=== PATIENT | female | born 1945 | race Caucasian/White ===

== ENCOUNTER 2017-10-22 09:06 | Emergency (ER) | payer OTHER ==
[2017-10-22 09:16] VITALS: TEMP 97.9; BMI 25.8
[2017-10-22] MEDS ORDERED: ONDANSETRON *ODT* 4 MG TABLET SL ONE (10:34)
[2017-10-22] MEDS ORDERED: ONDANSETRON *ODT* 4 MG TABLET ONE (10:37)
--- NOTE | 2017-10-22 10:55 | PDOC ---
History of Present Illness - General History Source: Patient Exam Limitations: No Limitations - History of Present Illness Initial Comments: 10/22/17 11:12 The patient is a 72 year old female, , all vaginal deliveries with a significant PMH of left breast cancer (s/p mastectomy) and HLD who presents to the emergency department with two episodes of vaginal bleeding, nausea, and suprapubic pain since this morning. The patient describes the suprapubic pain as a 1/10, waxing and waning, and dull pressure. The patient states she first noticed the bright red blood on the toilet paper after wiping this morning. The patient then had another episode of vaginal bleeding after a bowel movement this morning which she describes as a long, thin blood clot not on the stool. The patient denies pain with bowel movements or any abdominal surgeries in the past. The patient reports she was told she had a fibroid 4 years ago but had a normal biopsy and told to visit an ER if she started experiencing vaginal bleeding. The patient reports she came from [place] in May. The patient denies use of blood thinners. The patient can walk at baseline. The patient denies chest pain, shortness of breath, headache and dizziness. Denies fever, chills, vomit, diarrhea and constipation. Denies dysuria, frequency, urgency and hematuria. Allergies: NKA Past surgical history: Tubal ligation Social history: No reported alcohol, drug, or cigarette use. PCP: Dr. Ayala <Kamala Lujan - Last Filed: 10/22/17 11:23> <Nadia Sr - Last Filed: 10/22/17 12:24> - General Chief Complaint: Vaginal Bleeding Stated Complaint: VAGINAL BLEEDING Time Seen by Provider: 10/22/17 09:38 Past History <Kamala Lujan - Last Filed: 10/22/17 11:23> - Past Medical History Cancer: Yes (left breast w/mastectomy) COPD: No Hypercholesterolemia: Yes - Suicide/Smoking/Psychosocial Hx Smoking History: Never smoked Have you smoked in the past 12 months: No Information on smoking cessation initiated: No Hx Alcohol Use: No Drug/Substance Use Hx: No Substance Use Type: None <Nadia Sr - Last Filed: 10/22/17 12:24> - Past Medical History Allergies/Adverse Reactions: Allergies Allergy/AdvReac Type Severity Reaction Status Date / Time No Known Allergies Allergy Verified 10/22/17 09:12 Home Medications: Ambulatory Orders Metformin HCl 500 mg PO PRN 10/22/17 Simvastatin [Zocor -] 20 mg PO DAILY 10/22/17 Review of Systems - Review of Systems Able to Perform ROS?: Yes Comments:: 10/22/17 11:14 GENERAL/CONSTITUTIONAL: No fever or chills. No weakness. HEAD, EYES, EARS, NOSE AND THROAT: No change in vision. No ear pain or discharge. No sore throat. CARDIOVASCULAR: No chest pain or shortness of breath. RESPIRATORY: No cough, wheezing, or hemoptysis. GASTROINTESTINAL: (+) Nausea. (+) Suprapubic pain. No vomiting, diarrhea or constipation. GENITOURINARY: (+) Vaginal bleeding. No dysuria, frequency, or change in urination. MUSCULOSKELETAL: No joint or muscle swelling or pain. No neck or back pain. SKIN: No rash NEUROLOGIC: No headache, vertigo, loss of consciousness, or change in strength/ sensation. ENDOCRINE: No increased thirst. No abnormal weight change. HEMATOLOGIC/LYMPHATIC: No anemia, easy bleeding, or history of blood clots. ALLERGIC/IMMUNOLOGIC: No hives or skin allergy. <Kamala Lujan - Last Filed: 10/22/17 11:23> *Physical Exam - Vital Signs Last Vital Signs Temp Pulse Resp BP Pulse Ox 97.9 F 88 12 132/66 100 10/22/17 09:13 10/22/17 09:13 10/22/17 09:13 10/22/17 09:13 10/22/17 09:13 - Physical Exam Comments: 10/22/17 11:20 GENERAL: Awake, alert, and fully oriented, in no acute distress HEAD: No signs of trauma EYES: PERRLA, EOMI, sclera anicteric, conjunctiva clear ENT: Auricles normal inspection, hearing grossly normal, nares patent, oropharynx clear without exudates. Moist mucosa NECK: Normal ROM, supple, no lymphadenopathy, JVD, or masses LUNGS: Breath sounds equal, clear to auscultation bilaterally. No wheezes, and no crackles HEART: Regular rate and rhythm, normal S1 and S2, no murmurs, rubs or gallops ABDOMEN: Soft, nontender, normoactive bowel sounds. No guarding, no rebound. No masses : (+) Trace blood in the vaginal vault. (+) No adnexal tenderness. EXTREMITIES: Normal range of motion, no edema. No clubbing or cyanosis. No cords, erythema, or tenderness NEUROLOGICAL: Cranial nerves II through XII grossly intact. Normal speech, normal gait SKIN: Warm, Dry, normal turgor, no rashes or lesions noted. <Kamala Lujan - Last Filed: 10/22/17 11:23> - Vital Signs Last Vital Signs Temp Pulse Resp BP Pulse Ox 97.9 F 88 12 132/66 100 10/22/17 09:13 10/22/17 09:13 10/22/17 09:13 10/22/17 09:13 10/22/17 09:13 <Nadia Sr - Last Filed: 10/22/17 12:24> ED Treatment Course - LABORATORY CBC & Chemistry Diagram: 10/22/17 10:55 10/22/17 10:55 - Medications Given in the ED: ED Medications Discontinued Medications Generic Name Dose Route Start Last Admin Trade Name Freq PRN Reason Stop Dose Admin Ondansetron HCl 4 mg 10/22/17 10:34 10/22/17 10:45 Zofran Odt - SL 10/22/17 10:35 4 mg ONCE ONE Administration <Kamala Lujan - Last Filed: 10/22/17 11:23> - LABORATORY CBC & Chemistry Diagram: 10/22/17 10:55 10/22/17 10:55 - Medications Given in the ED: ED Medications Discontinued Medications Generic Name Dose Route Start Last Admin Trade Name Freq PRN Reason Stop Dose Admin Ondansetron HCl 4 mg 10/22/17 10:34 10/22/17 10:45 Zofran Odt - SL 10/22/17 10:35 4 mg ONCE ONE Administration <Nadia Sr - Last Filed: 10/22/17 12:24> Medical Decision Making - Medical Decision Making 10/22/17 10:55 Pt presents to the ED complaining of vaginal bleeding that started yesterday. minimal vaginal bleeding observed on exam. Concern for endometrial CA--will check basic labs, likely discharge with referral to ALLERGY AND IMMUNOLOGY SPECIALIST if labs are within normal limits. <Nadia Sr - Last Filed: 10/22/17 12:24> *DC/Admit/Observation/Transfer - Attestations Scribe Attestion: 10/22/17 11:22 Documentation prepared by Kamala Lujan, acting as medical office technology instructor for Nadia Sr MD. <Kamala Lujan - Last Filed: 10/22/17 11:23> - Discharge Dispostion Admit: No <Nadia Sr - Last Filed: 10/22/17 12:24> Diagnosis at time of Disposition: Vaginal bleeding - Discharge Dispostion Disposition: HOME Condition at time of disposition: Good - Referrals Referrals: Marnie Ayala [Primary Care Provider] - Ja Guevara MD [Staff Physician] - - Patient Instructions Printed Discharge Instructions: DI for Vaginal Bleeding Additional Instructions: You came to the ED for vaginal bleeding. In a woman your age, vaginal bleeding may indicate cancer of your uterus. YOU MUST follow up with a ALLERGY AND IMMUNOLOGY SPECIALIST within one week. Return to the ED for abdominal pain, repeated episodes of nausea and vomiting, fever, heavy vaginal bleeding, other new or changing symptoms. - Post Discharge Activity
[2017-10-22 11:07] LABS: BASO % 0.9 % (0-2.0); EOS % 2.3 % (0-4.5); HEMATOCRIT 42.8 % (32.4-45.2); HEMOGLOBIN 13.7 GM/dL (10.7-15.3); LYMPH % 37.9 % (8-40); MCH 29.2 pg (25.7-33.7); MCHC 32.1 g/dl (32.0-36.0); MEAN CELL VOLUME 90.8 fl (80-96); MEAN PLT VOLUME 8.9 fl (7.5-11.1); MONO % 6.9 % (3.8-10.2); PLATELET COUNT 258 K/MM3 (134-434); RBC 4.71 M/mm3 (3.60-5.2); RDW 13.9 % (11.6-15.6); WHITE BLOOD COUNT 7.8 K/mm3 (4.0-10.0)
[2017-10-22] MEDS ORDERED: METOCLOPRAMIDE HCL INJECTION 10 MG/2 ML VIAL IVPUSH ONE (11:24)
[2017-10-22 11:29] LABS: ALBUMIN 3.9 g/dl (3.4-5.0); ALK PHOS 94 U/L (45-117); ANION GAP 11 (8-16); BILIRUBIN,TOTAL 0.6 mg/dL (0.2-1.0); BLOOD UREA NITROGEN 14 mg/dL (7-18); CALCIUM 9.4 mg/dL (8.5-10.1); CHLORIDE 104 mmol/L (98-107); CO2 24 mmol/L (21-32); CREATININE 0.8 mg/dL (0.55-1.02); GLUCOSE,RANDOM 121 mg/dL (74-106); SGOT/AST 16 U/L (15-37); SGPT/ALT 21 U/L (12-78); SODIUM 139 mmol/L (136-145)
[2017-10-22] MEDS ORDERED: METOCLOPRAMIDE HCL INJECTION 10 MG/2 ML VIAL ONE (11:46)
[2017-10-22 12:40] VITALS: BP 130/74; PULSE 84
--- NOTE | 2017-10-27 11:54 | EKG ---
Test Reason : Blood Pressure : / mmHG Vent. Rate : 079 BPM Atrial Rate : 079 BPM P-R Int : 158 ms QRS Dur : 128 ms QT Int : 418 ms P-R-T Axes : 047 -37 048 degrees QTc Int : 479 ms NORMAL SINUS RHYTHM LEFT AXIS DEVIATION LEFT BUNDLE BRANCH BLOCK ABNORMAL ECG Confirmed by MD ELENA, CRISTIAN ([id number]) on 10/27/2017 11:53:55 AM Referred By: Confirmed By:CRISTIAN PARKER MD
== END 2017-10-22 12:40 | disposition home or self-care (01) ==
LOC: JER 09:06
PROC: 3E033GC Introduction of Other Therapeutic Substance into Peripheral Vein, Percutaneous Approach (ICD-10-PCS; principal; 2017-10-22)
DX: N93.8 Other specified abnormal uterine and vaginal bleeding (principal); E78.00 Pure hypercholesterolemia, unspecified; Z85.3 Personal history of malignant neoplasm of breast; Z90.12 Acquired absence of left breast and nipple
CPT/HCPCS: 36415; 80053; 85025; 85730; 93005; 93010; 99283-25; Q0162